=== PATIENT | male | born 1985 | race African-American/Black ===

== ENCOUNTER 2016-12-02 07:19 | Emergency (ER) | payer BC | END 2016-12-02 08:32 | disposition home or self-care (01) | LOC: D.ER 07:19 | DX: R50.9 Fever, unspecified (principal); R05 Cough ==

== ENCOUNTER → 2017-12-17 11:08 | Outpatient (CLI) | payer BC | END | disposition home or self-care (01) | LOC: D.RAD 11:08 | DX: S33.5XXA Sprain of ligaments of lumbar spine, initial encounter (principal); X58.XXXA Exposure to other specified factors, initial encounter ==